=== PATIENT | female | born 1955 | race Caucasian/White ===

== ENCOUNTER → 2022-08-19 | Day surgery (SDC) | payer MEDICARE, OTHER ==
[2022-08-18 16:08] LABS: BASOPHILS % 0.1 % (0.0-1.0); HEMATOCRIT 31.8 % (34.2-44.1); HEMOGLOBIN 10.9 g/dL (12.0-16.0); LYMPHOCYTES # (AUTO) 0.5 (1.0-3.2); LYMPHOCYTES % 5.8 % (18.0-39.1); MEAN CORPUSCULAR HEMOGLOBIN 31.1 pg (28-32); MEAN CORPUSCULAR HGB CONC 34.3 g/dL (31-35); MEAN CORPUSCULAR VOLUME 90.9 fL (81-99); MONOCYTES # (AUTO) 0.1 (0.2-0.8); MONOCYTES % 1.5 % (4.4-11.3); NEUTROPHILS # (AUTO) 8.2 (2.1-6.9); NEUTROPHILS % 89.6 % (38.7-80.0); PLATELET COUNT 245 x10e3/uL (140-360); RED CELL DISTRIBUTION WIDTH 15.7 % (11.7-14.4)
[2022-08-18 16:26] LABS: ALANINE AMINOTRANSFERASE 21 IU/L (0-55); ALBUMIN 3.9 g/dL (3.5-5.0); ALBUMIN/GLOBULIN RATIO 1.2 (0.8-2.0); ALKALINE PHOSPHATASE 49 IU/L (40-150); ANION GAP 19.6 mmol/L (8-16); BLOOD UREA NITROGEN 52 mg/dL (7-26); BUN/CREATININE RATIO 32 (6-25); CALCIUM 9.2 mg/dL (8.4-10.2); CARBON DIOXIDE 24 mmol/L (22-29); CHLORIDE 99 mmol/L (98-107); CHOL/HDL RATIO 4.4 (3.0-3.6); CHOLESTEROL 198 MD/DL (0-199); CREATININE, SERUM 1.62 mg/dL (0.57-1.11); HDL CHOLESTEROL 45 MG/DL (40-60); POTASSIUM 3.6 mmol/L (3.5-5.1); SODIUM 139 mmol/L (136-145); TRIGLYCERIDES 592 MG/DL (0-149)
[2022-08-18 16:40] LABS: GLUCOSE 447 mg/dL (74-118)
[~2022-08-19] VITALS: Ht 172.7 cm; Wt 62.6 kg
[2022-08-19] VITALS (9 sets, daily range): BP systolic 108–132; BP diastolic 62–80
[~2022-08-19] MED LIST: ACETAMINOPHEN-1 EAC4 PO; ALPRAZOLAM 0.5 MG TAB ONE; DIPHENHYDRAMINE HCL 25 MG CAP ONE; FENTANYL CITRATE/PF 100MCG/2 ML INJ ONE; HEPARIN SOD (PORCINE) 1000 UNIT/ML 30ML ONE; HEPARIN SOD/SOD CHLORIDE 2,000 ML ONE; IOPAMIDOL 370 MG/ML 100 ML INFUS..BTL INJ ONE; LASIX20 MG PO; LEVOTHYROXINE50 MCG PO; LIDOCAINE 1% 10 ML MULTIDOSE VIAL IJ ONE; MAXZIDE 37.5 M1 EACH PO; MIDAZOLAM HCL 2 MG/2 ML VIAL ONE; NEURONTIN100 MG PO; NIFEDIPINE ER30 M1 PO; NITROGLYCERIN/D5W 200 MCG/ML 250 ML ONE; PANTOPRAZOLE SO40 MG PO; PLAQUENIL200 MG PO; POTASSIUM99 M1 PO; PREDNISONE20 MG PO; SODIUM CHLORIDE 0.9% 1000ML 1,000 ML ONE; VERAPAMIL HCL 2.5 MG/ML 2 ML VIAL ONE; VIAGRA25 MG PO
== END | disposition home or self-care (01) ==
LOC: CATH LAB 06:26
PROVIDERS: ATTEND Internal Medicine Cardiovascular Disease
DX: I25.10 Atherosclerotic heart disease of native coronary artery without angina pectoris (principal); R94.39 Abnormal result of other cardiovascular function study; R03.0 Elevated blood-pressure reading, without diagnosis of hypertension; M32.9 Systemic lupus erythematosus, unspecified; E07.9 Disorder of thyroid, unspecified; I73.01 Raynaud's syndrome with gangrene; Z01.812 Encounter for preprocedural laboratory examination; Z20.822 Contact with and (suspected) exposure to COVID-19; Z79.899 Other long term (current) drug therapy; Z82.49 Family history of ischemic heart disease and other diseases of the circulatory system
CPT/HCPCS: 0223U; 36415; 80053; 80061; 85025; 93458; C1887; J1644; J2250; J3010; J7030; Q9967; 99152

== ENCOUNTER → 2022-09-07 | Day surgery (SDC) | payer MEDICARE, OTHER ==
[2022-09-01 13:45] LABS: ANION GAP 20.1 mmol/L (8-16); CALCIUM 8.9 mg/dL (8.4-10.2); CREATININE, SERUM 1.25 mg/dL (0.57-1.11); POTASSIUM 3.1 mmol/L (3.5-5.1)
[~2022-09-07] MED LIST changes: -ALPRAZOLAM 0.5 MG TAB ONE; +BUPIVACAINE 0.25% 30ML SDV ONE; -DIPHENHYDRAMINE HCL 25 MG CAP ONE; +ETOMIDATE 2 MG/ML 10 ML INJ IV ONE; -HEPARIN SOD (PORCINE) 1000 UNIT/ML 30ML ONE; -HEPARIN SOD/SOD CHLORIDE 2,000 ML ONE; -IOPAMIDOL 370 MG/ML 100 ML INFUS..BTL INJ ONE; -LIDOCAINE 1% 10 ML MULTIDOSE VIAL IJ ONE; +LIDOCAINE HCL 2% LOCAL INJ 5 ML SDV VIAL INJ ONE; +MUPIROCIN 2% OINT 22 GM TUBE ONE; -NITROGLYCERIN/D5W 200 MCG/ML 250 ML ONE; +ONDANSETRON HCL INJ 2MG/ML 2ML 2 MG/ML VIAL ONE; +POVIDONE IODINE 0.05% 0.05 % ML PO ONE; +PROPOFOL IV EMULSION 10 MG/ML 20 ML VIAL ONE; +SEVOFLURANE INHAL SOLN 250 ML PEN BTL ONE; -SODIUM CHLORIDE 0.9% 1000ML 1,000 ML ONE; -VERAPAMIL HCL 2.5 MG/ML 2 ML VIAL ONE
[2022-09-07 09:40] VITALS: BP 124/72
== END | disposition home or self-care (01) ==
LOC: EDSEX 07:00 → MERGE 07:00 → OR 07:14
PROVIDERS: ATTEND Plastic Surgery
DX: I73.01 Raynaud's syndrome with gangrene (principal); S00.11XA Contusion of right eyelid and periocular area, initial encounter; I10 Essential (primary) hypertension; E03.9 Hypothyroidism, unspecified; K21.9 Gastro-esophageal reflux disease without esophagitis; W19.XXXA Unspecified fall, initial encounter; Z88.1 Allergy status to other antibiotic agents; Z01.810 Encounter for preprocedural cardiovascular examination; Z01.812 Encounter for preprocedural laboratory examination; Z01.818 Encounter for other preprocedural examination; Z79.899 Other long term (current) drug therapy
CPT/HCPCS: 10140; 26951 ×4; 36415; 71046; 80048; 87071; 87075; 87186; 87205; 88305; 88311; 93005; J0690; J2001; J2405; J2704; 88304; J2250; J3010

== ENCOUNTER 2022-11-22 12:58 | Outpatient (RCR) | payer MEDICARE, OTHER ==
[~2022-11-22 12:58] MED LIST changes: -BUPIVACAINE 0.25% 30ML SDV ONE; -ETOMIDATE 2 MG/ML 10 ML INJ IV ONE; -FENTANYL CITRATE/PF 100MCG/2 ML INJ ONE; -LIDOCAINE HCL 2% LOCAL INJ 5 ML SDV VIAL INJ ONE; -MIDAZOLAM HCL 2 MG/2 ML VIAL ONE; -MUPIROCIN 2% OINT 22 GM TUBE ONE; -ONDANSETRON HCL INJ 2MG/ML 2ML 2 MG/ML VIAL ONE; -POVIDONE IODINE 0.05% 0.05 % ML PO ONE; -PROPOFOL IV EMULSION 10 MG/ML 20 ML VIAL ONE; -SEVOFLURANE INHAL SOLN 250 ML PEN BTL ONE
[2022-11-22] MEDS ORDERED: MUPIROCIN 2% OINT 22 GM TUBE ONE (13:08)
[2022-11-22] MEDS ORDERED: TRIAMCINOLONE ACET 0.1% CREAM 15 GM TUBE ONE (13:08)
== END 2022-12-07 ==
LOC: WCC 12:58
PROVIDERS: ATTEND Plastic Surgery
DX: T81.30XA Disruption of wound, unspecified, initial encounter (principal); T87.89 Other complications of amputation stump; I87.312 Chronic venous hypertension (idiopathic) with ulcer of left lower extremity; L97.821 Non-pressure chronic ulcer of other part of left lower leg limited to breakdown of skin; I87.2 Venous insufficiency (chronic) (peripheral); I79.8 Other disorders of arteries, arterioles and capillaries in diseases classified elsewhere; R60.0 Localized edema; E06.3 Autoimmune thyroiditis; G89.4 Chronic pain syndrome; H91.21 Sudden idiopathic hearing loss, right ear; I10 Essential (primary) hypertension; I48.91 Unspecified atrial fibrillation; I73.01 Raynaud's syndrome with gangrene; I77.1 Stricture of artery; I99.8 Other disorder of circulatory system; M32.10 Systemic lupus erythematosus, organ or system involvement unspecified; M34.89 Other systemic sclerosis; M79.7 Fibromyalgia; S61.306A Unspecified open wound of right little finger with damage to nail, initial encounter; W17.89XA Other fall from one level to another, initial encounter; Z01.810 Encounter for preprocedural cardiovascular examination; Z89.112 Acquired absence of left hand